=== PATIENT | female | born 1975 | race Caucasian/White ===

== ENCOUNTER 2019-12-01 08:02 | Outpatient (CLI) | payer BC, SELFPAY ==
--- NOTE | ~2019-12-01 | XR_ITS ---
EXAMINATION: XR chest 2V 12/01/2019 08:14 INDICATION: Asthma, cough and dyspnea. Nicotine dependence. PROCEDURE: 2 view chest COMPARISON: No prior studies for comparison. FINDINGS: The lungs are clear. The cardiomediastinal silhouette is within normal limits. There are no pleural effusions. There is no pneumothorax suspected. IMPRESSION: 1: NO ACUTE CARDIOPULMONARY DISEASE. Reviewed, dictated and finalized at location B. [facility]
[2019-12-01 17:23] LABS: Basophils Absolute Auto 0.1 K/mm3 (0.0-0.1); Basophils Percent Auto 0.4 % (0.2-1.2); Eosinophils Absolute Auto 0.1 K/mm3 (0-0.3); Eosinophils Percent Auto 0.7 % (0-4.4); Hematocrit 48.6 % (37.0-47.0); Hemoglobin 14.7 g/dL (12.0-15.0); Immature Granulocyte Absolute 0.16 K/mm3 (0.00-0.031); Lymphocytes Percent Auto 18.5 % (18.3-44.2); Mean Corpuscular HGB Conc 30.2 g/dl (32-36); Mean Corpuscular Hemoglobin 26.7 pg (26-34); Mean Corpuscular Volume 88.4 fl (80-100); Mean Platelet Volume 10.6 fl (7.4-10.4); Monocytes Absolute Auto 0.7 K/mm3 (0.1-0.6); Monocytes Percent Auto 4.6 % (2.6-8.5); Neutrophils Absolute Auto 12.1 K/mm3 (1.3-6.7); Neutrophils Percent Auto 74.8 % (45.5-73.1); Platelet Count Result 324 k/mm3 (150-375); Red Cell Distribution Width 15.6 % (11.5-14.5); White Blood Count 16.2 K/mm3 (4.5-10.0)
[2019-12-01 17:28] LABS: Add Urine Microscopic? YES; Appearance Urine Clear (Clear); Bacteria Urine Trace /hpf; Bilirubin Urine Negative (Negative); Blood Urine Negative (Negative); Color Urine Yellow (Yellow); Glucose Urine UA Negative (Negative); Ketones Urine Trace mg/dL (Negative); Leukocyte Esterase Ur Negative LEU/UL (Negative); Mucus Urine Rare /lpf; Nitrate Urine Negative (Negative); Protein Urine 1+ mg/dL (Negative); RBC Urine 0-2 /hpf (0-2); Specific Grav Ur 1.027 (1.001-1.035); Squamous Epithelial Cell Urine Many /hpf (Few); Urobilinogen Urine Negative mg/dL (<2.0); WBC Urine 0-3 /hpf
[2019-12-01 17:36] LABS: Alanine Aminotransferase 17 U/L (4-35); Albumin Level 3.9 g/dL (3.5-5.1); Alkaline Phosphatase 78 U/L (38-126); Aspartate Amino Transferase 23 U/L (14-36); Bilirubin,Total 0.4 mg/dL (0.2-1.3); Blood Urea Nitrogen 9 mg/dL (7-17); CRP 2.5 mg/dL (<1.0); Calcium 8.9 mg/dL (8.4-10.2); Carbon Dioxide 25 mmol/L (22-30); Chloride 99 mmol/L (98-107); Cholesterol 135 mg/dL (0-200); Estimated Glomerular Filt Rate > 60; Glucose 131 mg/dL (65-105); HDL Direct 31 mg/dL; Potassium 4.4 mmol/L (3.4-5.0); Sodium 138 mmol/L (137-145); Triglycerides 177 mg/dL (<150)
[2019-12-01 17:45] LABS: LDL Cholesterol Direct 92 mg/dL
[2019-12-01 17:51] LABS: Free T4 Free Thyroxine 1.18 ng/mL (0.78-2.19)
[2019-12-01 18:38] LABS: Folic Acid 11.3 ng/mL (2.76->20)
[2019-12-03 20:44] LABS: Sex Hormone Binding Globulin 27 nmol/L (17-124)
[2019-12-04 12:23] LABS: T3 Reverse 19 ng/dL (8-25)
[2019-12-04 14:03] LABS: Testosterone Free 2.9 pg/mL (0.1-6.4); Testosterone Total 19 ng/dL (2-45)
[2019-12-04 19:54] LABS: C-Peptide 3.85 ng/mL (0.80-3.85); FSH 9.5 mIU/mL (***); Progesterone 1.4 ng/mL (***); Triiodothyronine T3 Free 3.5 pg/mL (2.3-4.2)
[2019-12-08 23:46] LABS: Estradiol, Ultrasensitive 71 pg/mL
== END 2019-12-01 08:03 | disposition home or self-care (01) ==
LOC: ANHBWCIMG 08:06
PROVIDERS: PCP Family Medicine; Visit Provider Family Medicine
DX: E11.9 Type 2 diabetes mellitus without complications (principal); E28.2 Polycystic ovarian syndrome; Z79.899 Other long term (current) drug therapy; Z82.62 Family history of osteoporosis; N99.89 Other postprocedural complications and disorders of genitourinary system; Z98.51 Tubal ligation status; F17.200 Nicotine dependence, unspecified, uncomplicated; R05 Cough
CPT/HCPCS: 36415; 71046; 80053; 80061; 81001; 82306; 82607; 82670; 82746; 83001; 83735; 84144; 84270; 84402; 84403; 84439; 84443; 84481; 84482; 84681; 85025; 86140

== ENCOUNTER 2020-08-15 08:34 | Emergency (ER) | payer BC, SELFPAY ==
--- NOTE | 2020-08-15 08:40 | ED.GENADULT ---
HPI - General Adult General Chief complaint: Dental/Oral Stated complaint: tooth pain Time Seen by Provider: 08/15/20 08:52 Source: patient and RN notes reviewed Mode of arrival: ambulatory Limitations: no limitations History of Present Illness HPI narrative: 44-year-old female presents with complaints of diffused right upper, lower dental pain, and intermittent right otalgia for the past 2 days. Hydrocodone, Ibuprofen, and TENS unit with some relief last used on 08/14/2020 at bedtime. Denies any drainage. No fever. Right lower jaw swelling. No neck swelling. No limitation with speaking or swallowing. Has history of dental caries. Has not seen a dentist recently. No dental trauma. No oral lesions. Exacerbating factors consist of chewing on RT side, eating and drinking cold items. Some relieving factors not eating on RT side, avoiding cold items, and pain medication. No dentures or bridges. LMP endometrial ablation, spotting noted last on 07/27/2020. Remains active. Tolerating liquids well. The patient reports she have not been diagnosed with COVID-19. The patient reports she is not waiting for the results of a COVID-19 lab test. The patient reports she do not have 5 chills, weakness, or fatigue. The patient reports she do not have a new or worsening cough or shortness of breath. Denies chest pain. The patient reports she do not have any rhinorrhea, congestion, sore throat, loss of taste, nausea, vomiting, abdominal pain, and diarrhea. Antibiotics protein denies recent traveling. Denies concerns for COVID-19 or exposures been home with limited outdoor exposure except for essential household needs, work, and return home. At this time, patient is not suspected of having COVID-19. Some parts of this dictation were generated by voice recognition software and may contain typographical and/or grammatical inaccuracies. Related Data Home Medications Medication Instructions Recorded Confirmed albuterol sulfate 90 mcg/actuation 1 puff INHALATION Q4H PRN 11/24/19 08/15/20 aerosol inhaler alprazolam 0.5 mg tablet 0.5 mg PO DAILY PRN 11/24/19 08/15/20 beclomethasone dipropionate 80 1 inhalation INHALATION Q12H PRN 11/24/19 08/15/20 mcg/actuation HFA breath activated aerosol buspirone 10 mg tablet 10 mg PO DAILY tablet 11/24/19 08/15/20 famotidine 20 mg tablet 20 mg PO BID tablet 11/24/19 08/15/20 omeprazole 20 mg tablet,delayed 20 mg PO DAILY 11/24/19 08/15/20 release zolpidem 5 mg PO HS PRN 08/15/20 08/15/20 Allergies Allergy/AdvReac Type Severity Reaction Status Date / Time naproxen [From Aleve] Allergy Mild Hives Verified 08/15/20 08:56 pseudoephedrine Allergy Mild Hives Verified 08/15/20 08:56 [From [facility]] Review of Systems Review of Systems: Narrative: CONSTITUTIONAL: Denies fever, chills, sweats. EYES: Denies visual changes, redness, discharge. ENT: Denies rhinorrhea, congestion, sore throat. Complains of diffused right upper and lower dental pain with RT lower jaw swelling, intermittent RT otalgia. CARDIOVASCULAR: Denies chest pain, palpitations, edema. RESPIRATORY: Denies dyspnea, wheezing, cough. GASTROINTESTINAL: Denies abdominal pain, nausea, vomiting, diarrhea. SKIN: Denies rash or itching. MUSCULOSKELETAL: Denies acute back pain, joint pain, or myalgia. NEUROLOGIC: Denies numbness or focal weakness. PSYCHIATRIC: Denies anxiety or depression. All systems reviewed & are unremarkable except as noted in HPI and below. [facility] Past Medical History Medical History (Updated 08/15/20 @ 09:26 by ITZ Mcknight) Allergies Anxiety Asthma Asymptomatic PVCs Back pain Diabetes Elevated C-reactive protein (CRP) Hernia History of gastroesophageal reflux (GERD) Hx of migraine headaches Other longterm (current) drug therapy Polycystic ovary Proteinuria Skin cancer Smoker Subcutaneous emphysema TMJ (temporomandibular joint syndrome) Surgical History Surgical History (Updated
[2020-08-15 08:44] VITALS: BP 183/96; PULSE 93; RESP 16; TEMP 36.7; O2SAT 97
[2020-08-15 08:55] VITALS: BP 172/98
== END 2020-08-15 09:05 | disposition home or self-care (01) ==
PROVIDERS: Emergency Provider Nurse Practitioner Family; PCP Family Medicine
DX: K02.9 Dental caries, unspecified (principal); K04.7 Periapical abscess without sinus; F17.210 Nicotine dependence, cigarettes, uncomplicated; J45.909 Unspecified asthma, uncomplicated; E11.9 Type 2 diabetes mellitus without complications; K21.9 Gastro-esophageal reflux disease without esophagitis
CPT/HCPCS: 99213; G0463